=== PATIENT | female | born 1975 | race Caucasian/White ===

== ENCOUNTER 2016-08-30 16:56 | Emergency (ER) | payer SELFPAY ==
[2016-08-30 17:13] VITALS: BMI 21.9
[2016-08-30 17:14] VITALS: TEMP 98
[2016-08-30 17:45] LABS: LEUKOCYTES/URINE NEG (NEGATIVE); NITRITE/URINE NEG (NEGATIVE); RBC/URINE 0-2 (0-5); URINE OCCULT BLOOD NEG (NEG/TRACE); WBC/URINE 0-2 (0-5)
[2016-08-30 17:47] LABS: AUTOMATED BASOPHIL 0.6 % (0-2); AUTOMATED EOSINOPHIL 1.2 % (0-5); AUTOMATED LYMPH 31.1 % (17-44); AUTOMATED MONOCYTE 5.8 % (3-10); AUTOMATED NEUTROPHIL 61.3 % (45-76); MPV 7.6 fL (7.4-10.4)
[2016-08-30 17:48] LABS: ALL NEG? YES; MDMA* NEG (NEGATIVE); METHAMPHETAMINES NEG (NEGATIVE); OXYCODONE NEG (NEGATIVE)
[2016-08-30 18:03] LABS: BLOOD UREA NITROGEN 14 MG/DL (7-17); CALCIUM 9.2 MG/DL (8.4-10.2); CALCULATED OSMOLALITY 286 MOs/Kg (270-290); CHLORIDE 112 mEq/L (98-107); GLUCOSE 87 mg/dL (70-99); SODIUM LEVEL 149 mEq/L (137-146)
[2016-08-30 18:10] LABS: ETOH-MGDL 308 mg/dL
--- NOTE | 2016-08-30 18:15 | EDPRACDOC ---
- General Information Chief Complaint: Psychiatric Illness Stated Complaint: IVC Time Seen by Provider: 08/30/16 17:33 Information Source: Patient Home Medications: Home Medications ClonazePAM [Klonopin] 1 mg PO BID PRN 08/30/16 Allergies/Adverse Reactions: Allergies Allergy/AdvReac Type Severity Reaction Status Date / Time Sulfa (Sulfonamide Allergy Hives* Verified 08/30/16 17:08 Antibiotics) - History of Present Illness Onset: today after drinking alcohol HPI: IVC BY PARENTS: PT WAS IN AN ARGUMENT WITH PARENTS LAST NIGHT OVER HER DRINKING BEER AFTER WORK. DURING ARGUMENT, PT SAID SHE WANTED TO JUMP OUT OF A WINDOW. IVC BY PARENTS TONIGHT. PT DENIES SI, HI, HALLUCINATIONS. DENIES ALCOHOL ABUSE. DENIES OTHER DRUG USE. DENIES PSYCHIATRIC HISTORY. PT RECENTLY MOVED BACK IN WITH PARENTS DUE TO FINANCIAL DIFFICULTIES. Reason for Seeking Treatment: Family Suicidal Plan: Reports: Other Suicidal Attempt: Reports: Other ED Past Medical History - History Reviewed Yes Nurses notes reviewed and agree except as marked - Patient Medical History Psychological History: Denies: Depression, Substance Use Disorder Surgical History: Denies: Hysterectomy - Social Medical History Smoking Status: Never smoker Social History: Denies: Substance Use Disorder EDM Review of Systems - Review of Systems ROS Negative Except as Marked: Yes All systems reviewed and were negative except as marked - Physical Exam Constitutional: No apparent distress, Alert (Awake). negative: Distress, ETOH Oriented to: Time, Person, Place Last recorded Vital Signs: Last Vital Signs Temp 98 F 08/30/16 17:13 Pulse 111 08/30/16 17:13 Resp 24 08/30/16 17:13 BP 155/71 08/30/16 17:13 Pulse Ox 97 08/30/16 17:13 Oxygen Pulse Oxygen Saturation 97 O2 Device Oxygen Flow Rate Fraction of Inspired Oxygen ( FIO2) - HEENT Head: Normal ( normocephalic) Eye Exam: Normal (PERRL, EOMI, Sclera white) Oropharynx: Normal (Pharynx:Moist without exudate,Gums-no swelling) Nose: No Symptoms Reported (septum midline) Neck: Normal (FROM, trachea at midline) - Respiratory/Cardiovascular Respiratory: Normal - CTA (BBS clear to auscultation without adventitious sounds ) Cardiovascular: Normal (RRR without murmur, gallop or rub) - GI Auscultation: Normal (NABS) Palpation: Normal (Soft,No rebound or guarding, non distended) Tenderness: Non tender Guillermo's Sign: Negative - Musculoskeletal Back: Normal (Non-Tender) Extremities: Normal (Normal tone, Pulses 2+ No cyanosis or edema, FROM) - Integumentary Skin: Normal, Warm, Dry, Other (ABRASION LEFT FOREARM) Lymphatics: Normal (no adenopathy) - Neurologic Memory Impaired: Normal Motor Function: Normal (Normal tone, Pulses 2+ No cyanosis or edema, FROM) Cranial Nerve: Normal (CN II-X11 intact sensation, strength 5/5) Cerebellar: Normal Mood Description: Normal Thought: Coherent Perception: Normal - Re-evaluation Re-evaluation 2 Re-evaluation Time: 18:17 I HAVE SEEN AND EVLENKA PT. PT ALSO SEEN BY KACY. WE AGREE NO INDICATION FOR IVC OR INPAT PSYCH CARE. PLAN TO REVERSE IVC, D/C HOME. Re-evaluation 3 Re-evaluation Time: 19:50 (NOW VERY SLEEPY, DIFFICULT TO AWAKEN. WILL WATCH ON PULSE OX UNTIL MENTAL STATUS IMPROVED.) Re-evaluation 4 Re-evaluation Time: 20:49 (AWAKE AND ALERT, DENIES H/O BARTOLO OR SZ. DEFERS ALCOHOL ABUSE TREATMENT.) - Results 08/30/16 17:32 08/30/16 17:32 WBC 7.8 xk/uL (3.8-10.8) 08/30/16 17:32 RBC 4.38 xM/uL (4.20-5.40) 08/30/16 17:32 Hgb 14.2 g/dL (12.0-16.0) 08/30/16 17:32 Hct 41.8 % (36-47) 08/30/16 17:32 MCV 95 fL (81-99) 08/30/16 17:32 MCH 32.3 pg (27-32) H 08/30/16 17:32 MCHC 33.9 g/dl (33-36) 08/30/16 17:32 RDW 13.2 % (11.5-14.5) 08/30/16 17:32 Plt Count 197 xk/uL (130-400) 08/30/16 17:32 MPV 7.6 fL (7.4-10.4) 08/30/16 17:32 Neut % (Auto) 61.3 % (45-76) 08/30/16 17:32 Lymph % (Auto) 31.1 % (17-44) 08/30/16 17:32 [place] % (Auto) 5.8 % (3-10) 08/30/16 17:32 Eos % (Auto) 1.2 % (0-5) 08/30/16 17:32 Baso % (Auto) 0.6 % (0-2) 08/30/16 17:32 Absolute Neuts (auto) 4.76 xk/uL (1.7-8.2) 08/30/16 17:32 Absolute Lymphs (auto) 2.42 xk/uL (0.65-4.75) 08/30/16 17:32 Urine Color Pale yellow 08/30/16 17:32 Urine Clarity Clear 08/30/16 17:32 Urine pH 6.0 (5.0-8.0) 08/30/16 17:32 Ur Specific [place] 1.005 (1.003-1.035) 08/30/16 17:32 Urine Protein Neg (NEG/TRACE) 08/30/16 17:32 Urine Glucose (UA) Neg (NEGATIVE) 08/30/16 17:32 Urine Ketones Neg (NEGATIVE) 08/30/16 17:32 Urine Occult Blood Neg (NEG/TRACE) 08/30/16 17:32 Urine Nitrite Neg (NEGATIVE) 08/30/16 17:32 Urine Bilirubin Neg (NEGATIVE) 08/30/16 17:32 Urine Urobilinogen <2.0 MG/DL (0-1) 08/30/16 17:32 Ur Leukocyte Esterase Neg (NEGATIVE) 08/30/16 17:32 Urine RBC 0-2 (0-5) 08/30/16 17:32 Urine WBC 0-2 (0-5) 08/30/16 17:32 Ur Epithelial Cells 1+ 08/30/16 17:32 Urine Bacteria 1+ (NEG/FEW) H 08/30/16 17:32 Urine Test Neg (NEGATIVE) 08/30/16 17:32 Urine Opiates Screen Neg (NEGATIVE) 08/30/16 17:32 Ur Oxycodone Screen Neg (NEGATIVE) 08/30/16 17:32 Urine Methadone Screen Neg (NEGATIVE) 08/30/16 17:32 Ur Barbiturates Screen Neg (NEGATIVE) 08/30/16 17:32 Ur Tricyclics Screen Neg (NEGATIVE) 08/30/16 17:32 Ur Phencyclidine Scrn Neg (NEGATIVE) 08/30/16 17:32 Ur Amphetamines Screen Neg (NEGATIVE) 08/30/16 17:32 U Methamphetamines Scrn Neg (NEGATIVE) 08/30/16 17:32 Urine MDMA Screen Neg (NEGATIVE) 08/30/16 17:32 U Benzodiazepines Scrn Neg (NEGATIVE) 08/30/16 17:32 Urine Cocaine Screen Neg (NEGATIVE) 08/30/16 17:32 Ur THC Screen Neg (NEGATIVE) 08/30/16 17:32 Lab Results 08/30/16 08/30/16 08/30/16 17:32 17:32 17:32 WBC RBC Hgb Hct MCV MCH MCHC RDW Plt Count MPV Neut % (Auto) Lymph % (Auto) [place] % (Auto) Eos % (Auto) Baso % (Auto) Absolute Neuts (auto) Absolute Lymphs (auto) Urine Color Pale yellow Urine Clarity Clear Urine pH 6.0 Ur Specific [place] 1.005 Urine Protein Neg Urine Glucose (UA) Neg Urine Ketones Neg Urine Occult Blood Neg Urine Nitrite Neg Urine Bilirubin Neg Urine Urobilinogen <2.0 Ur Leukocyte Esterase Neg Urine RBC 0-2 Urine WBC 0-2 Ur Epithelial Cells 1+ Urine Bacteria 1+ H Urine Test Neg Urine Opiates Screen Neg Ur Oxycodone Screen Neg Urine Methadone Screen Neg Ur Barbiturates Screen Neg Ur Tricyclics Screen Neg Ur Phencyclidine Scrn Neg Ur Amphetamines Screen Neg U Methamphetamines Scrn Neg Urine MDMA Screen Neg U Benzodiazepines Scrn Neg Urine Cocaine Screen Neg Ur THC Screen Neg 08/30/16 17:32 WBC 7.8 RBC 4.38 Hgb 14.2 Hct 41.8 MCV 95 MCH 32.3 H MCHC 33.9 RDW 13.2 Plt Count 197 MPV 7.6 Neut % (Auto) 61.3 Lymph % (Auto) 31.1 [place] % (Auto) 5.8 Eos % (Auto) 1.2 Baso % (Auto) 0.6 Absolute Neuts (auto) 4.76 Absolute Lymphs (auto) 2.42 Urine Color Urine Clarity Urine pH Ur Specific [place] Urine Protein Urine Glucose (UA) Urine Ketones Urine Occult Blood Urine Nitrite Urine Bilirubin Urine Urobilinogen Ur Leukocyte Esterase Urine RBC Urine WBC Ur Epithelial Cells Urine Bacteria Urine Test Urine Opiates Screen Ur Oxycodone Screen Urine Methadone Screen Ur Barbiturates Screen Ur Tricyclics Screen Ur Phencyclidine Scrn Ur Amphetamines Screen U Methamphetamines Scrn Urine MDMA Screen U Benzodiazepines Scrn Urine Cocaine Screen Ur THC Screen - Departure Disposition: Home Final Diagnosis: Involuntary commitment Alcohol intoxication Qualifiers: Complication of substance-induced condition: uncomplicated Qualified Code(s): F10.120 - Alcohol abuse with intoxication, uncomplicated Instructions: Abuse of Alcohol (ED) Education/Counseling Given To: Patient, Family Member Education/Counseling Given Regarding: Diagnosis, Treatment, Prognosis Referrals: None,No Provider [Primary Care Provider] - One Week Prescriptions: No Action ClonazePAM [Klonopin] 1 mg PO BID PRN PRN Reason: Anxiety
[2016-08-30 20:49] VITALS: BP 110/74; PULSE 78
== END 2016-08-30 20:48 | disposition home or self-care (01) ==
LOC: ED 16:56
DX: F11.20 Opioid dependence, uncomplicated (principal)
CPT/HCPCS: 36415; 80053; 80307; 81001; 81025; 85025; 86592; 99284